=== PATIENT | female | born 1985 | race Two or more races ===

== ENCOUNTER 2025-02-04 19:03 | Emergency (ER) | payer OTHER ==
[~2025-02-04] VITALS: Ht 149.9 cm; Wt 64.4 kg
[2025-02-04 19:57] VITALS: BP 98/60; O2SAT 98
[2025-02-04 21:17] LABS: BASO % 0.3 % (0.1-1.2); EOS # 0.02 (0.04-0.54); EOS % 0.2 % (0.7-7.0); LYMPH # 2.91 (1.18-3.74); LYMPH % 28.5 % (19.3-53.1); MEAN PLATELET VOLUME 9.50 fl (9.4-12.4); MONO # 0.87 (0.24-0.82); MONO % 8.5 % (4.7-12.5); NEUT # 6.35 (1.56-6.13); NEUT % 62.3 % (34.0-71.1); RED CELL DISTRIBUTION WIDTH 12.6 % (11.6-14.4)
[2025-02-04 22:23] LABS: COVID-19 AG NEGATIVE (NEGATIVE)
== END 2025-02-05 00:26 | disposition home or self-care (01) ==
LOC: ER 19:04
PROVIDERS: General Practice
DX: B34.9 Viral infection, unspecified (principal); M79.18 Myalgia, other site; Z20.822 Contact with and (suspected) exposure to COVID-19; Z91.018 Allergy to other foods